=== PATIENT | female | born 1970 | race Caucasian/White ===

== ENCOUNTER → 2019-12-27 | Outpatient (CLI) | payer BC, OTHER | LOC: M.RAD 09:20 | DX: Z12.31 Encounter for screening mammogram for malignant neoplasm of breast (principal) ==

== ENCOUNTER → 2020-01-13 | Outpatient (CLI) | payer BC, OTHER | LOC: M.RAD 12-31 09:15 | DX: R92.1 Mammographic calcification found on diagnostic imaging of breast (principal); R92.0 Mammographic microcalcification found on diagnostic imaging of breast ==

== ENCOUNTER → 2020-01-16 | Outpatient (CLI) | payer BC, OTHER | LOC: M.RAD 13:03 | DX: N63.20 Unspecified lump in the left breast, unspecified quadrant (principal) ==

== ENCOUNTER → 2020-07-10 | Outpatient (CLI) | payer BC | LOC: M.RAD 13:58 | PROVIDERS: ATTEND Family Medicine | DX: R92.8 Other abnormal and inconclusive findings on diagnostic imaging of breast (principal) ==